=== PATIENT | male | born 1975 | race African-American/Black ===

== ENCOUNTER 2019-06-25 05:53 | Inpatient (IN) | payer OTHER ==
[~2019-06-25] VITALS: Ht 177.8 cm; Wt 68.0 kg
[2019-06-25] VITALS (20 sets, daily range): BP systolic 113–143; BP diastolic 66–92
[~2019-06-25 05:53] MED LIST: NKM
[2019-06-25] MEDS ORDERED: LORazepam 0.5mg tab ORAL PRN (06:15)
[2019-06-25] MEDS ORDERED: Chloraseptic Spray 20mL Bottle ORAL PRN (06:15)
[2019-06-25] MEDS ORDERED: HYDROcodone/Acetamin 10/325 tab ORAL PRN (06:15)
[2019-06-25] MEDS ORDERED: Dexamethasone 4mg/ml vial ONE (06:19)
[2019-06-25] MEDS ORDERED: Lidocaine 1% MPF 10mg/ml 5ml ONE ×2 (06:19→09:00)
[2019-06-25] MEDS ORDERED: Sodium Chloride 10ml vial INJ ONE (06:19)
[2019-06-25] MEDS ORDERED: LR 1000ml 1,000 ML IVLG SCH (06:23)
--- NOTE | 2019-06-25 06:27 | Immediate Post-Op Evaluation ---
Immediate Post-Op Evalulation Immediate Post-Op Evalulation Procedure: ALIF L5-S1 Date of Evaluation: Jun 25, 2019 Time of Evaluation: 09:57 IV Fluids: 900 LR Blood Products: 0 Estimated Blood Loss: 25 Urinary Output: 50 Blood Pressure Systolic: 113 Blood Pressure Diastolic: 67 Pulse Rate: 73 Respiratory Rate: 16 O2 Sat by Pulse Oximetry: 100 Temperature (Fahrenheit): 98.6 Pain Score (1-10): 3 Nausea: No Vomiting: No Complications 0 Patient Status: awake, reacts, patent, extubated, none Hydration Status: adequate Dru grams Ancef IV Given Within 1 Hr of Incision: Yes Time Given: 07:31 Vooldymyr Sinclair MD Jun 25, 2019 06:27
[2019-06-25] MEDS ORDERED: Midazolam 2mg/2ml Inj IVP PRN (06:30)
[2019-06-25] MEDS ORDERED: HYDROcodone/Acetamin 5/325 tab ORAL PRN (06:30)
[2019-06-25] MEDS ORDERED: Ketorolac 30mg Inj IV PRN ×2 (06:30)
[2019-06-25] MEDS ORDERED: DiphenhydrAMINE 50mg/ml Inj IVP PRN (06:30)
[2019-06-25] MEDS ORDERED: Atropine Sulfate 0.4mg/ml inj IVP PRN (06:30)
[2019-06-25] MEDS ORDERED: HYDROcodone/Acetamin 7.5/325 tab ORAL PRN (06:30)
[2019-06-25] MEDS ORDERED: Hydromorphone 0.5mg/0.5ml inj IVP PRN (06:30)
[2019-06-25] MEDS ORDERED: Acetaminophen (Non formulary) 100 ML IV ONE (06:30)
[2019-06-25] MEDS ORDERED: LORazepam Inj 2mg/ml 1ml IV PRN (06:30)
[2019-06-25] MEDS ORDERED: fentaNYL 100 mcg/2 mL IV PRN (06:30)
[2019-06-25] MEDS ORDERED: Labetalol 5mg/ml 20ml vial IV PRN (06:30)
[2019-06-25] MEDS ORDERED: Meperidine 50mg/ml Inj(FOR RIGORS ONLY) IVP PRN (06:30)
[2019-06-25] MEDS ORDERED: oxyCODONE HCL/Acetaminophen 5/325mg ORAL PRN (06:30)
[2019-06-25] MEDS ORDERED: Lidocaine 1% Plain 30 ml INJ ONE ×2 (06:33→06:35)
[2019-06-25] MEDS ORDERED: fentaNYL 100 mcg/2 mL IV ONE (06:33)
[2019-06-25] MEDS ORDERED: NORCO 10-325 T1 EACH ORAL (06:34)
[2019-06-25] MEDS ORDERED: CARISOPRODOL350 MG ORAL (06:34)
[2019-06-25] MEDS ORDERED: Heparin 5000 units/ml inj ONE (06:34)
[2019-06-25] MEDS ORDERED: Thrombin 5000 units TOPIC ONE (06:35)
[2019-06-25] MEDS ORDERED: Ropivacaine 5mg/ml Vial 30ml INJ ONE (06:35)
[2019-06-25] MEDS ORDERED: Gelfoam Size TOPIC ONE (06:35)
[2019-06-25] MEDS ORDERED: Bacitracin 50000 Units Vial ONE (06:35)
--- NOTE | 2019-06-25 06:58 | Anethesia Preoperative Eval ---
Anesthesia Pre-op PMH/ROS General Date of Evaluation: Jun 25, 2019 Time of Evaluation: 07:11 Anesthesiologist: Yahir ASA Score: ASA 2 Mallampati Score Class I : Soft palate, uvula, fauces, pillars visible Class II: Soft palate, uvula, fauces visible Class III: Soft palate, base of uvula visible Class IV: Only hard plate visible Mallampati Classification: Class II Surgeon: Oleksandr Diagnosis: Back Pain Surgical Procedure: ALIF L5-S1 Anesthesia History: none Family History: no anesthesia problems Allergies: Coded Allergies: SULFA (SULFONAMIDE ANTIBIOTICS) (Verified Allergy, Severe, RASH , 06/25/19) RISPERIDONE (Verified Adverse Reaction, Severe, AKINESIA, 06/24/19) Medications: see eMAR Patient NPO?: Yes NPO Date: Jun 24, 2019 NPO Time: 0000 Past Medical History Cardiovascular: Reports: arrhythmia - Pacemaker Gastrointestinal/Genitourinary: Reports: other - Crohns Neurologic/Psychiatric: Reports: depression/anxiety Anesthesia Pre-op Phys. Exam Physician Exam Last Vital Signs Date Time Temp Pulse Resp B/P (MAP) Pulse Ox O2 Delivery O2 Flow Rate FiO2 06/25/19 06:25 97.8 61 18 135/86 (102) 100 Constitutional: NAD Neurologic: CN 2-12 intact Cardiovascular: RRR Respiratory: CTA Gastrointestinal: S/NT/ND Airway Exam Mallampati Score: Class II MO: full ROM: full Teeth: missing, intact Anesthesia Pre-op A/P Risk Assessment & Plan Assessment: ASA 2 Plan: GA, SED, GlideScope Go Status Change Before Surgery: No Pre-Antibiotics Dru Grams Ancef IV Given Within 1 Hr of Incision: Yes Time Given: 07:31 Volodymyr Sinclair MD Jun 25, 2019 06:58
[2019-06-25] MEDS ORDERED: Propofol 1,000mg/ 100ml btl IV ONE (07:00)
[2019-06-25] MEDS ORDERED: NS 500ML ONE (07:00)
[2019-06-25] MEDS ORDERED: Sterile Water Irrig 1000ml IRRIG ONE (07:00)
[2019-06-25] MEDS ORDERED: Dexamethasone 20mg/5ml IVP ONE (07:00)
[2019-06-25] MEDS ORDERED: ceFAZolin sod 1 GM in NS 55 ML IVPB ONE (07:00)
[2019-06-25] MEDS ORDERED: NS Irrig 1000ml ONE (07:00)
[2019-06-25] MEDS ORDERED: LR 1000ml ONE (07:00)
--- NOTE | 2019-06-25 07:20 | Pre-Procedure Note/Attestation ---
Pre-Procedure Note/Attestation Complete Prior to Procedure Planned Procedure: not applicable Procedure Narrative: Ls-S1 ALIF anterior plate Indications for Procedure Pre-Operative Diagnosis: trauma discogenic baack pain radiculopathy neurological deficit Attestation I attest that I discussed the nature of the procedure; its benefits; risks and complications; and alternatives (and the risks and benefits of such alternatives ), prior to the procedure, with the patient (or the patient's legal lead generation representative). I attest that, if there was a reasonable possibility of needing a blood transfusion, the patient (or the patient's legal lead generation representative) was given the [place] Department [employer] standardized written summary, pursuant to the Garrett Wenden Blood Safety Act ([place] Health and Safety Code # 1645, as amended). I attest that I re-evaluated the patient just prior to the surgery and that there has been no change in the patient's H&P, except as documented below: Masoud Leggett MD Jun 25, 2019 07:20
--- NOTE | 2019-06-25 09:22 | Brief Operative Note ---
Immediate Post Operative Note Operative Note Pre-op Diagnosis: trauma discogenic baack pain radiculopathy neurological deficit Procedure: ALIF L5-S1 Interbody Device Biologic Anterior plate fixation - not integral with interbody device Post-op Diagnosis: same as pre-op Findings: consistent w/pre-op dx studies Surgeon: Oleksandr LOW Additional Surgeons: Karl LOW Anesthesiologist: Yahir LOW Anesthesia: general Specimen: yes Complications: none Condition: stable Fluids: anesthesia Estimated Blood Loss: minimal Drains: none Implant(s) used?: Yes Masoud Leggett MD Jun 25, 2019 09:21
--- NOTE | 2019-06-25 09:23 | NUR ---
CASE MANAGEMENT:REVIEW 43YR OLD MALE HERE FOR ELECTIVE SURGERY SI: BACK PAIN AND RADICULOPATHY 97.7 98 18 137/88 98% ON RA IS: TO SURGERY FOR: ANTERIOR LUMBAR INTERBODY FUSION POSTERIOR LATERAL FUSION : CURRENTLY IN SURGERY INTERQUAL CRITERIA MET Addendum: 06/25/19 at 0932 by ALIREZA OMSLEY LVN LVN ABOVE NOTE ENTERED IN ERROR....PLEASE DISREGARD
[2019-06-25] MEDS ORDERED: Naloxone 0.4mg/ml Inj IVP PRN (09:30)
--- NOTE | 2019-06-25 09:32 | NUR ---
CASE MANAGEMENT:REVIEW 43 YR OLD MALE HERE FOR ELECTIVE SURGERY SI:TRAUMA. DISCOGENIC BACK PAIN 97.8 61 18 135/86 100% ON RA IS: TO SURGERY: ALIF L5-S1 : CURRENTLY IN SURGERY INTERQUAL CITERIA MET
[2019-06-25] MEDS ORDERED: Rate Change PCA 1 Each MISC PRN (10:45)
[2019-06-25] MEDS ORDERED: PCA Education Pamphlet MISC ONE (10:45)
--- NOTE | 2019-06-25 11:02 | NUR ---
nurse notes received patient from PACU via bed, s/p ALIF L5-S1, dressing clean dry and intact, patient awake, alert, oriented x4, no sign of distress with on goingo2 AT 2lpm via NC,IVF patent and infusing well, meng cath to gravity, admission routine care rendered ,oriented to the unit , v/s taken and recorded, plan of care was discussed needs reinforcement, kept clean dry and intact lucia carrington
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
[2019-06-25] MEDS: PCA Morphine 1mg/ml 30 ML IV PRN (11:34)
[2019-06-25] MEDS: D5 1/2NS 1,000 ML IV SCH ×3 (11:35→22:42)
--- NOTE | 2019-06-25 11:59 | Diagnostic Imaging Report ---
Indication: Back pain. Fluoroscopic images from spinal surgery Technique: Fluoroscopic images from spinal surgery Operating Physician: Masoud Leggett MD Total fluoroscopy time: 11.3 seconds Total fluoroscopy dose: 3.9 mGy Total number of fluoroscopic images submitted for archival to PACS: 3 Note the radiologist was not present during image acquisition. Comparison: None Findings: Intraoperative fluoroscopic imaging from spinal surgery demonstrates surgical material projecting over the L5-S1 disc space. Subsequent images demonstrate anterior fusion at L5-S1 utilizing anterior plate affixed by screws as well as interbody disc spacer. Impression: Intraoperative fluoroscopic imaging from spinal surgery. Please see operative report.
--- NOTE | 2019-06-25 13:33 | NUR ---
NURSE NOTES: Spoke to regarding diet order. Per : spoke to and ok to order clear liquid diet with soda. Can advance as tolerated. Order noted and carried out.
[2019-06-25] MEDS: ceFAZolin sod 1 GM in D5W 55 ML IV SCH ×2 (14:28→20:59)
--- NOTE | 2019-06-25 16:30 | Operative Note - Dictated ---
DATE OF OPERATION: 06/25/2019 VASCULAR SURGEON: Matthew Barajas M.D. SPINE SURGEON: Masoud Leggett M.D. PREOPERATIVE DIAGNOSIS: Lumbar pain. POSTOPERATIVE DIAGNOSIS: Lumbar pain. PROCEDURE PERFORMED: Anterior retroperitoneal exposure of L5-S1 vertebral interspace, right retroperitoneal approach. INDICATIONS: The patient is a very pleasant gentleman who was seen in my office prior to surgery. no history of deep venous thrombosis or bleeding complications described. He was made aware of the risks of vascular surgery including vascular injury, deep venous thrombosis, and bleeding complications. DESCRIPTION OF FINDINGS: A low vertical midline incision was used. A right retroperitoneal approach was used. There was no peritoneal or ureteral violation. There was no vascular injury. Exposure of L5-S1 was obtained below the iliac bifurcation and confirmed using fluoroscopy. On completion, the peritoneum and ureter intact. The iliac vessels are intact. Blood loss was less than 100 mL and complications were none. DESCRIPTION OF PROCEDURE: The patient was taken to the operative room. General anesthesia was used. IV antibiotics were given. The patient's abdomen was prepped and draped. Appropriate time-out for procedures were taken. A low vertical midline incision was made infraumbilically, the anterior fascia was incised longitudinally midline. A plane was identified posterior to the left rectus abdominis developed posterolaterally towards the patient's right. The retroperitoneal space entered below the arcuate line. The peritoneum and ureter were mobilized towards the patient's left exposing the right common iliac artery and vein. Dissection was carried superiorly on right common iliac vessels. The anterior surface of L5-S1 palpated. The peritoneum and ureter towards the patient's left exposing the anterior surface of L5-S1. The medial border of the iliac vein was visualized and carefully swept laterally and Omni retractor was set in place. Fluoroscopy was then used to confirm the appropriate level. The middle sacral vessel was ligated using bipolar electrocautery and divided and this allowed to expose anterior surface of L5-S1. Instrumentation was then performed at L5-S1, dictated separately. On completion, retractors are removed. Peritoneum and ureter were intact. Iliac vessels are intact. Anterior fascia was closed using #1 PDS in a running fashion and the skin and subcutaneous tissue were closed with 3-0 Vicryl and 4-0 Monocryl in a running subcuticular closure technique. Estimated blood loss was less than 100 mL and complications were none. Matthew Barajas M.D. DR: JAKUB JOB#: [id number] CC:
[2019-06-25] MEDS: PCA shift volume MISC SCH (19:25)
--- NOTE | 2019-06-25 19:27 | NUR ---
HAND-OFF: Report given to Ms Nidia DAVILA aacordingly lucia carrington.
--- NOTE | 2019-06-25 20:15 | NUR ---
NURSES NOTE: Received pt in bed, awake, A/OX4, able to communicate needs. No outward s/s of distress noted. Breathing pattern is even and unlabored on 2l/min nasal canula. BACK JOINER pump running according to eMAR. Pt states he only uses it hourly, RN encouraged pt to use it more often due to pt stating he was currently in pain. Surgical site, medial abdomen is clean, dry, intact. L hand IV is patent, infusing well. All due medications will be given. Bed at lowest level, call light within reach. Pt will continue to be monitored.
[2019-06-26] VITALS (8 sets, daily range): BP systolic 123–136; BP diastolic 67–87
--- NOTE | 2019-06-26 04:16 | NUR ---
NURSES NOTE: Pt stable through out NOC shift thus far. States Morphine ELEVATOR ADJUSTER pump is efficient in handling pain. No outward s/s of distress noted.
[2019-06-26] MEDS: D5 1/2NS 1,000 ML IV SCH ×2 (05:22→09:26)
[2019-06-26] MEDS: ceFAZolin sod 1 GM in D5W 55 ML IV SCH (06:02)
[2019-06-26] MEDS: PCA shift volume MISC SCH ×2 (07:00→19:12)
--- NOTE | 2019-06-26 07:40 | NUR ---
NURSE NOTES: Report received from Velma DAVILA, rounds made. Patient sleeping in left lateral/semi-fowlers position in bed. Awakens easily. Patient denies SOB on O2 2LNC, no NV, appetite poor. Abdomen surgical site, intact, small area bloody stained. Demonstrated/instructed on IS with pillow to abdomen for surgical site splinting. IV (D5 1/2 NS) infusing at 150 ml/hr with BLOCKER POLISHING Morphine. Pain 6/10 to surgical site, refused ice pack. Bilateral SCDs on. Neuro checks done, no NT, skin warm, pulses palpable, wiggles. Call light in reach, bed in lowest position, will continue to monitor.
--- NOTE | 2019-06-26 07:51 | NUR ---
HAND OFF: Report given to GIOVANNI Beebe. Patient in stable condition.
--- NOTE | 2019-06-26 09:24 | 48 Hour Post Anesthesia Eval ---
Post Anesthesia Evaluation Procedure: ALIF L5-S1 Date of Evaluation: Jun 26, 2019 Time of Evaluation: 09:29 Blood Pressure Systolic: 125 0: 72 Pulse Rate: 66 Respiratory Rate: 17 Temperature (Fahrenheit): 97.9 O2 Sat by Pulse Oximetry: 99 Airway: patent Nausea: No Vomiting: No Pain Intensity: 2 Hydration Status: adequate Cardiopulmonary Status: Stable Mental Status/LOC: patient returned to baseline Follow-up Care/Observations: 0 Post-Anesthesia Complications: 0 Follow-up care needed: N/A Volodymyr Sinclair MD Jun 26, 2019 09:24
--- NOTE | 2019-06-26 10:36 | Cardiology Progress Note ---
Assessment/Plan Assessment/Plan [id number] dicateted Objective Last 24 Hour Vital Signs Date Time Temp Pulse Resp B/P (MAP) Pulse Ox O2 Delivery O2 Flow Rate FiO2 06/26/19 09:24 66 17 99 06/26/19 08:39 98 Room Air 21 06/26/19 08:10 97.9 66 17 125/72 (89) 99 06/26/19 08:00 66 17 99 06/26/19 04:00 98.4 64 17 134/80 (98) 99 06/26/19 04:00 62 17 99 06/26/19 00:00 98.3 79 18 133/87 (102) 99 06/26/19 00:00 70 18 99 06/25/19 21:00 Nasal Cannula 2.0 06/25/19 20:07 100 Nasal Cannula 2.0 28 06/25/19 20:00 79 18 100 06/25/19 20:00 99.2 79 17 134/77 (96) 98 06/25/19 16:15 98.1 69 16 139/91 (107) 98 06/25/19 16:00 64 18 98 06/25/19 15:00 71 18 97 06/25/19 14:00 71 18 97 06/25/19 13:00 69 17 97 06/25/19 12:30 64 18 135/90 (105) 98 06/25/19 12:30 64 18 98 06/25/19 12:00 68 18 98 06/25/19 11:50 97.6 69 18 143/90 (107) 98 06/25/19 11:50 69 18 98 06/25/19 11:40 100 Nasal Cannula 2.0 28 06/25/19 11:35 71 16 98 06/25/19 11:15 97.8 71 16 141/91 (108) 98 06/25/19 11:00 97.8 70 130/92 (105) 17 06/25/19 10:45 97.9 06/25/19 10:36 97.9 71 19 138/85 100 Nasal Cannula 3 Intake and Output 06/25/19 06/26/19 19:00 07:00 Intake Total 2513 ml 2790 ml Output Total 1375 ml 2250 ml Balance 1138 ml 540 ml Intake Oral 500 ml 1180 ml IV Total 2013 ml 1610 ml Output Urine Total 1350 ml 2250 ml Estimated Blood Loss 25 ml Yazan Fischer MD Jun 26, 2019 10:36
[2019-06-26] MEDS ORDERED: D5 1/2NS 1000ml IV ONE (10:42)
[2019-06-26] MEDS: PCA Morphine 1mg/ml 30 ML IV PRN (13:16)
[2019-06-26] MEDS ORDERED: LORazepam 0.5mg tab ORAL PRN (14:30)
--- NOTE | 2019-06-26 14:30 | NUR ---
NURSE NOTES: Instructed patient on orders to ambulate. Advised that we can ambulate in room first then try the hallway, patient verbalized understanding, will check back with patient on when ready to get up.
--- NOTE | 2019-06-26 14:46 | NUR ---
PT Note PT emeka completed, treatment initiated. Patient was instructed on proper log rolling and proper body mechanics. Patient needs continued training on these to improve his safety in mobility and gait. Addendum: 06/26/19 at 1446 by CHIRAG OLIVARES PT Amended: Links added.
--- NOTE | 2019-06-26 15:30 | NUR ---
NURSE NOTES: DAIRY NUTRITION SPECIALIST Morphine syringe changed at 1316, verified with 2 RNs, setting remains the same. Patient alert, oriented x4, calm. Vitals stable. O2 sats 97-99 % 2LNC, CO2 35-38. Pain 5/10 to surgical site with movement. IVF (D5 1/2 at 150 ml/hr) discontinued at this time, changed to 0.9 NS at 20 ml/hr as maintenance to DAIRY NUTRITION SPECIALIST Morphine. Will continue to monitor.
--- NOTE | 2019-06-26 16:00 | NUR ---
NURSE NOTES: Suggested to patient to get up and ambulate in room with RN, patient said later he will. Will offer assistance again. Addendum: 06/26/19 at 1904 by Concepción Stahl RN Reinforced the importance of changing position and mobility post op to prevent respiratory infections and skin breakdown. Instructed patient to continue to do IS 10x an hour, verbalized understanding.
--- NOTE | 2019-06-26 16:41 | NUR ---
PT Note Attempted to see patient for treatment but patient wants to be seen at a later time. Patient was encouraged to ambulate with nursing assistance later.
--- NOTE | 2019-06-26 18:20 | NUR ---
NURSE NOTES: Suggested to patient to get up for five minutes to ambulate around room then back to bed, patient refused said he will get up later, will endorse to next shift.
--- NOTE | 2019-06-26 19:05 | NUR ---
HAND-OFF: Report given to Velma DAVILA,rounds made. Endorsed patient refusing to ambulate and to encourage activity. Addendum: 06/26/19 at 1942 by Concepción Stahl RN Endorsed new order for Flomax at HS and FC to be discontinued tomorrow morning (06/27/2019 at 0600)
--- NOTE | 2019-06-26 20:11 | NUR ---
NURSES NOTE: Received report from GIOVANNI Beebe. Met pt in bed, A/OX4, able to communicate needs. No outward s/s of distress noted. Pt now on RA with breathing pattern even and unlabored. WIRE WINDING MACHINE OPERATOR pump, morphine running according to eMAR, pt states effective. Order to be d/c within 24 hrs or after last syringe complete- which ever comes first. Pt states he will ambulate with RN. Made aware dr would like him to ambulate during NOC shift. Dressing, medial abdomen, small blood stain; however no orders to change PRN. Pt will continue to be monitored. Bed at lowest level, call light within reach.
--- NOTE | 2019-06-26 20:15 | Consultation ---
DATE OF CONSULTATION: 06/26/2019 INTERNAL MEDICINE CONSULTATION CONSULTING PHYSICIAN: Yazan Fischer M.D. REFERRING PHYSICIAN: Masoud Leggett M.D. REASON FOR REFERRAL: Postoperative medial care. HISTORY OF PRESENT ILLNESS: This is a 43-year-old gentleman with history of multiple issues as noted. The patient was admitted and underwent lumbar spine surgery with Dr. Leggett on 06/25/2019 for trauma, discogenic back pain, radiculopathy, and neurological deficit, and is being seen postoperatively. He has already walked. He has had no bowel movement, but is passing gas. He denies any chest pain, pressure, tightness, or heaviness. No shortness of breath. No dizziness on standing. No heart pounding or palpitations. 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 He has a history of depression. Denies any diabetes, high blood pressure, or high cholesterol. No heart attack, cancer, stroke, hepatitis, tuberculosis, asthma, or emphysema. No ulcers. No kidney problems, liver problems, or thyroid problems. MAJOR PRIOR SURGERIES: Pacemaker implantation. ALLERGIES: He is allergic to Haldol that caused him to have stiffness. The chart indicates he is also allergic to risperidone and sulfa. SOCIAL HISTORY: Occasional tobacco. Quit alcohol in 2018 and drug in 2018. Used to use cocaine previously. He is legally . There are no kids. REVIEW OF SYSTEMS: GASTROINTESTINAL: Negative. GENITOURINARY: Negative. PULMONARY: Negative. CONSTITUTIONAL: Negative. NEUROLOGIC: Negative. CARDIAC: Negative. PHYSICAL EXAMINATION: GENERAL: Shows to be a middle-aged gentleman, in no respiratory distress. NECK: Supple. No jugular venous distention. LUNGS: Clear to auscultation and percussion. CARDIAC: S1 is normal. S2 is normal. Pacemaker in the left upper chest wall was intact. ABDOMEN: Soft. There is a vertical dressing in the lower abdominal midline area. The dressing is clean. There is minimal dried blood underneath the dressing. EXTREMITIES: There is no edema. He has pneumatic compression stockings in place. ASSESSMENT: 1. Lumbar spine injury, now status post surgery for radiculopathy. 2. Pacemaker history. PLAN: This patient was seen in cardiac consultation and medical consultation. He is doing well. His vital signs appeared to be quite stable and his temperature is afebrile. He is already on warfarin and has not had any bowel movement, but he has had passed flatus. He is walking in the halls, and once he is able to tolerate a meal and has a bowel movement, he will be discharged home. DVT prophylaxis with use of pneumatic compression stockings and early ambulation and also was recommended that the patient is not on any chronic medications that require adjustment. Dr. Reyes has seen the patient for pain management and the patient is doing relatively well. Yazan Fischer M.D. DR: DAVID JOB#: [id number] CC:
[2019-06-26] MEDS ORDERED: Tamsulosin 0.4mg cap ORAL ONE (21:00)
--- NOTE | 2019-06-26 22:45 | Progress Note ---
DATE: 06/26/2019 ACUTE PAIN MANAGEMENT PHYSICIAN PROGRESS NOTE MEDICATIONS: Medication administration record reviewed. Medications include Tylenol, Mylanta, Soma, Benadryl, Pepcid, [place], Ativan, morphine FACULTY SUPPORT COORDINATOR, intramuscular morphine, Narcan, NicoDerm patch, Zofran, Chloraseptic spray, and Phenergan. LABORATORY STUDIES: No interval laboratory studies. VITAL SIGNS: Afebrile, pulse 63, respirations 20, blood pressure 123/71, and oxygen saturation 99% on room air. I spent over 60 minutes in consultation today. I discussed the case with the surgeon, Dr. Leggett, along with the nurse, GIOVANNI Hunt. The patient has been recovering quickly from his ALIF spinal surgical procedure yesterday. He is already passing flatus. He has been advancing his diet without any nausea problems. The patient continues to respond well to the morphine FACULTY SUPPORT COORDINATOR, which I will continue for another 24 hours. Afterwards, I will transition on to the oral [place] pills along with intramuscular morphine. The patient already has a supply of [place] for home usage. The patient denies any shortness breath or chest pain. Nicotine patch is working well to help prevent nicotine-withdrawal agitation. I will continue p.r.n. Ativan for anxiety or insomnia episodes, which thankfully have not occurred during this hospitalization. The patient is agreeable with the recovery plan. We will continue to advance him with physical therapy as tolerated. He walked very well without any assist device such as a front-wheeled walker with the physical therapist earlier today. He has been cleared to ambulate ad-ángela. Increased ambulation will continue to help with DVT prophylaxis along with anglican of bowel function. We will await a bowel movement to demonstrate improvement in recovery in his bowel function after the ALIF procedure. He will continue with his incentive spirometer usage with his tobacco usage. I once again counseled the patient to discontinue smoking. The patient already has supply of [place] for home usage. He has minimal support outside the hospital, so we will be certain that the patient is able to independently function at home and be able to take care of his own activities of daily living by himself prior to hospital discharge. The patient does have a cardiac pacemaker and Dr. Fischer evaluated the patient earlier this morning. Bhupendra Reyes M.D. DR: Roya JOB#: [id number] CC:
[2019-06-27 04:00] VITALS: BP 140/89
[2019-06-27 06:00] VITALS: BP 140/89
[2019-06-27] MEDS: PCA shift volume MISC SCH (07:00)
--- NOTE | 2019-06-27 07:22 | NUR ---
NURSE NOTES: Report received from Velma DAVILA, rounds made. Patient sleeping in left lateral position in bed, awakens easily. Denies pain at this time. MANDARIN TUTOR (Morphine) in place with NS at 20 ml/hr. Urinal at bedside, awaiting on first void post FC removal. No distress on RA. No NV. Abdominal dressing, remains unchanged, small area stained, upper part of dressing. Nicotine patch to NANCY. Bilateral SCDs off. Neuros intact, skin warm, wiggles, pulses palpable, no NT. Call light in reach, bed in lowest position, will continue to monitor.
--- NOTE | 2019-06-27 07:54 | NUR ---
HAND OFF: Report given to lucia Beebe.
[2019-06-27 08:00] VITALS: BP 148/94
[2019-06-27] MEDS ORDERED: Docusate 100mg cap ORAL SCH (09:00)
--- NOTE | 2019-06-27 09:30 | Progress Note ---
DATE: 06/27/2019 ACUTE PAIN MANAGEMENT PHYSICIAN PROGRESS NOTE MEDICATIONS: Medication administration record reviewed. Medications include Tylenol, Mylanta, Soma, Benadryl, Pepcid, [place], Ativan, morphine SR. MERCHANDISE PLANNER, intramuscular morphine, Narcan, nicotine patch, Zofran, and Chloraseptic spray. LABORATORY STUDIES: No interval laboratory studies. OBJECTIVE: Afebrile, pulse 64, respirations 18, blood pressure 140/89, oxygen saturation 99% on room air. I spent over 60 minutes in consultation today. I saw the patient at the bedside with the nurse RN, Concepción. I will also spoke with the overnight nurse, Velma, who ambulated around the hallways with the patient last night. This morning, the patient is alert and oriented x3. He continues to use the morphine SR. MERCHANDISE PLANNER quite sparingly. He is complaining of significant abdominal incisional pain. I explained that this is completely normal, especially in light of stoic behavior using the pain medication very sparingly. At this point, I would Hep-Lock his IV fluids and discontinue the SR. MERCHANDISE PLANNER in order to encourage movement in and out of bed. The Vazquez catheter was removed this morning, and the patient is able to void urine well. I did encourage the patient not use the urinal at the bedside, but instead to ambulate to the restroom for extra ambulation exercising. The patient agrees to comply. The patient has been compliant using his incentive spirometer. He is afebrile. The patient continued use of the nicotine patch. We had a lengthy discussion about nicotine usage in smoking cessation, which Dr. Leggett and I strongly advise, to help optimize his surgical fusion repair. The patient understands and will try to comply. The patient has a good supply of [place] already at home. He is tolerating a regular diet without any nausea symptoms. He also denies shortness of breath or chest pain. There have been no cardiac arrhythmia issues with his pacemaker history. The patient will continue advancing his ambulation as we wait for evidence of confucianism of bowel function with a positive bowel movement. Bhupendra Reyes M.D. : KATERINE JOB#: [id number] CC:
[2019-06-27] MEDS: Morphine Sulfate 2mg/ml Inj(IV/IM USE ONLY) IM PRN ×3 (09:54→23:13)
[2019-06-27 12:00] VITALS: BP 140/83
--- NOTE | 2019-06-27 14:45 | NUR ---
NURSE NOTES: Patient up ambulating in halls x 10 mins, gait steady. Will continue to monitor.
--- NOTE | 2019-06-27 15:07 | NUR ---
PT Note Attempted to see patient multiple times but patient always states, "I'll do it later." Patient was educated on the importance of ambulation but he still refused.
[2019-06-27 16:00] VITALS: BP 149/91
--- NOTE | 2019-06-27 16:06 | Cardiology Progress Note ---
Assessment/Plan Assessment/Plan 1. Lumbar spine injury, now status post surgery for radiculopathy. 2. Pacemaker history. no bm but has had flatus pain control continue to dvt ppx ambualte if has bm will dc home Subjective Cardiovascular: Denies: chest pain, lightheadedness, palpitations Respiratory: Denies: shortness of breath Gastrointestinal/Abdominal: Reports: other - lower abd dressign is clean an dry ; Denies: abdomen distended Genitourinary: Denies: burning Objective Last 24 Hour Vital Signs Date Time Temp Pulse Resp B/P (MAP) Pulse Ox O2 Delivery O2 Flow Rate FiO2 06/27/19 12:00 98.5 63 16 140/83 (102) 99 06/27/19 09:29 100 Room Air 21 06/27/19 08:00 98.7 62 16 148/94 (112) 100 06/27/19 08:00 62 16 100 06/27/19 06:00 64 19 99 06/27/19 04:00 97.9 64 18 140/89 (106) 99 06/27/19 04:00 64 19 99 06/26/19 21:00 Room Air 06/26/19 20:54 98 Room Air 21 06/26/19 20:00 60 19 99 06/26/19 20:00 98.9 60 19 133/67 (89) 99 General Appearance: no apparent distress Neck: supple Cardiovascular: normal rate Respiratory/Chest: lungs clear Abdomen: non tender, soft, other - lower abd surgical dressign clean an dry Extremities: no swelling Intake and Output 06/26/19 06/27/19 19:00 07:00 Intake Total 677 ml 1200 ml Output Total 1850 ml 525 ml Balance -1173 ml 675 ml Intake Oral 677 ml 1200 ml Output Urine Total 1850 ml 525 ml Microbiology Date/Time Source Procedure Growth Status 06/25/19 06:30 Nasal Nares MRSA Culture - Final NO METHICILLIN RESISTANT STAPH AUREUS... Complete Yazan Fischer MD Jun 27, 2019 16:06
[2019-06-27] MEDS ORDERED: Magnesium Citrate Liq Btl ORAL SCH (16:30)
--- NOTE | 2019-06-27 17:45 | NUR ---
NURSE NOTES: Updated Dr. Leggett on patient's current status, notified of no BM, new colace orders, activity, stained dressing. Orders to leave dressing in place, do not change, DC colace, ordered Mag Citrate 1/3 bottle now and 1/3 bottle in 6 hours. Patient updated on new orders and plan of care, verbalized understanding.
--- NOTE | 2019-06-27 19:25 | NUR ---
HAND-OFF: Report given to Velma DAVILA, rounds made. Endorsed patient to receive Mag Citrate (100 ml) at 2315.
--- NOTE | 2019-06-27 19:46 | NUR ---
NURSES NOTE: Received report from GIOVANNI Beebe. Met pt in bed, sleeping, awakens to name. A/OX4, able to express needs. No outward s/s of distress noted. Breathing pattern is even and unlabored on RA. JOY LOADING MACHINE OPERATOR pump discontinued. Dressing, medial abdomen, remains stained with a small amount of blood. No orders to change dressing. is aware. Pt states he would like to ambulate to encourage BM. RN will walk with pt after med rounds. All due medications will be given. Bed at lowest level, call light within reach. Pt will continue to be monitored.
[2019-06-27 20:00] VITALS: BP 123/76
[2019-06-28] VITALS: BP 138/81
[2019-06-28 04:00] VITALS: BP 134/83
--- NOTE | 2019-06-28 07:30 | Progress Note ---
DATE: 06/28/2019 ACUTE PAIN MANAGEMENT PHYSICIAN PROGRESS NOTE MEDICATIONS: Medication administration record reviewed. Medications include Tylenol, Mylanta, Benadryl, Pepcid, Lynd, morphine, Narcan, nicotine patch, Zofran, and Chloraseptic spray. LABORATORY STUDIES: No interval laboratory studies. OBJECTIVE: VITAL SIGNS: Within normal limits. Afebrile, pulse 63, respirations 17, blood pressure 138/81, oxygen saturation 100% on room air. I spent over 60 minutes in consultation today. I saw the patient at the bedside with the nurse RN, Velma. I discussed the case with the surgeon, Dr. Leggett and Orthopedics charge nurse RN, . The patient continues to advance his ambulation well. The abdominal incisional pain continues to improve. He has been managing his pain quite well using the p.r.n. doses of morphine primarily. Lynd remains available, which the patient also will use when he returns to home. Dr. Leggett directed the nurses to dose the patient with magnesium citrate 100 mL to help with the patient to have a bowel movement. The patient had a dose at 5 p.m. yesterday evening and second dose at 11 p.m. last night. At this time, the patient still has not yet had a bowel movement and we will await Dr. Leggett to direct for further laxative orders. The patient does not feel bloated at this time, but does feel comfortable to managing his activities of daily living at home by himself. However, he is cleared for discharge after his bowel movement here in the hospital. The wound dressing is clean and dry. The patient is compliant using his incentive spirometer. There have been no anxiety episodes and the patient is very cooperative as well as appreciative. Bhupendra Reyes M.D. DR: KATERINE JOB#: [id number] CC:
--- NOTE | 2019-06-28 07:45 | NUR ---
NURSE NOTES: Received report from Velma DAVILA. Patient is awake and oriented, no acute distress noted, reporting no pain at this time. patient had normal BM this morning, having breakfast and tolerating well. Right hand IV intact, locked. Surgical site dressing has small stain. Patient updated on plan of care for the day. Side rails upx2, bed low and locked, call light within reach.
--- NOTE | 2019-06-28 07:58 | NUR ---
NURSES NOTE: Pt seen by Dr Reyes this morning. NNO given. No BM as of yet after Magnesium citrate administration. Last dose, 100ml given 2315 last night although not able to document eMAR.
[2019-06-28 08:00] VITALS: BP 137/84
--- NOTE | 2019-06-28 08:00 | NUR ---
HAND OFF: Report given to GIOVANNI Bocanegra. Pt in stable condition.
--- NOTE | 2019-06-28 11:57 | NUR ---
NURSE NOTES: Called the office of Dr. Leggett and received discharge order from , home medications reviewed with and MD ordered ok to continue. All orders entered, will carry out.
[2019-06-28 12:00] VITALS: BP 133/89
--- NOTE | 2019-06-28 12:00 | Operative Note - Dictated ---
DATE OF OPERATION: 06/25/2019 Dr. Leggett assist Vascular Surgery. PRIMARY SURGEON: Masoud Leggett, Ph.D.; M.D. SECOND SURGEON: Matthew Barajas M.D. Vascular Surgery. ANESTHESIA: Volodymyr Sinclair M.D. general with intubation. ADMITTING/ PREOPERATIVE DIAGNOSES: L5-S1 diskogenic back pain, radiculopathy, neurologic deficit, lower extremity. POSTOPERATIVE DIAGNOSES: L5-S1 diskogenic back pain, radiculopathy, neurologic deficit, lower extremity. OPERATIVE PROCEDURE: 1. Anterior interbody reconstruction and fusion, L5-S1. 2. Placement of osteopromotive material, L5-S1. 3. Placement of titanium porous ingrowth, lordotic interbody device L5-S1. 4. Intraoperative fluoroscopy interpreted by surgeon. 5. High-powered magnification dissection. 6. SSEP monitoring. ESTIMATED BLOOD LOSS: Less than 50 mL. COMPLICATIONS: None. FLUIDS: Please see anesthesia record. POSTOPERATIVE CONDITION: Good/stable. DESCRIPTION OF PROCEDURE: The patient was brought to the operating room and in the supine position, general anesthesia with intubation was induced. IV antibiotics, IV Decadron were administered 30 minutes prior to incision time. Anterior abdomen was sterilely prepped and draped free in usual sterile fashion. Please see report Dr. Barajas Vascular Surgery, for approach and closure. L5-S1 interval was identified with direct visualization. Spinal needle was placed into the disk space midline and a cross-table and AP image was obtained under sterile conditions, interpreted by surgeons demonstrating the correct level for surgery as well as midline for placement. Level marked. Retractors placed. Needle removed. Annulotomy followed with diskectomy to but not through the posterior longitudinal ligament. Intermittent rents were identified/visualized. No cerebrospinal fluid leakage. No degradation at any time. SSEP monitoring. Posterior longitudinal ligament rents noted during diskography with dye flow through those rents. End-plates denuded to bleeding bone with maintenance of the integrity of the subchondral plates. Trial utilization utilized for determination of the correct implants size and height with depth and lordosis. Implant height utilized for decompression of the foramina right/left. Osteopromotive material with local autograft placed inside of the titanium porous ingrowth graft. Graft tamped into position under high-power magnification/direct observation in conjunction with fluoroscopic guidance. Interference fit excellent. Height excellent. SSEP monitoring stable. Anterior internal plate fixation without the plate fixation being integral to the interbody graft was undertaken in a compressive fashion with 30 mm titanium screws. Locked into position. Fluoroscopic guidance demonstrated excellent alignment and convergence. The patient is stable. AP and lateral fluoroscopic images obtained recorded. Wound irrigated with antibiotic-containing saline. Please see closure, Dr. Barajas. The patient was awakened and extubated in the operating room and transported to postop recovery in good stable condition. Masoud Leggett M.D. DR: Claudio JOB#: [id number] CC:
--- NOTE | 2019-06-28 12:32 | NUR ---
NURSE NOTES: Patient discharged without distress at 1220. Patient provided with discharge instructions, reviewed discharge instructions/handouts with patient and patient verbalized understanding of provided education. IV removed intact. Patient escorted to private vehicle by nurse discharge planner.
--- NOTE | 2019-06-28 14:37 | NUR ---
CASE MANAGEMENT:REVIEW 06/26/2019 SI:POD# 1 TRAUMA. DISCOGENIC BACK PAIN 97.9 66 17 125/72 99% ON RA IS: PEPCID PO BID NICODERM TD Q24HR COLACE PO BID \: 3E MED SURG CASE MANAGEMENT:REVIEW 06/27/2019 SI:POD# 2 TRAUMA. DISCOGENIC BACK PAIN 98.7 62 16 148/94 100% ON RA IS: PEPCID PO BID NICODERM TD Q24HR COLACE PO BID \: 3E MED SURG
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
== END 2019-06-28 12:20 | disposition home or self-care (01) | DRG 460 ==
LOC: SDSOVERFLO 05:53 → EEVIPCON 07:00 → 3E 10:45
DX: M54.17 Radiculopathy, lumbosacral region (principal); F17.200 Nicotine dependence, unspecified, uncomplicated; Z95.0 Presence of cardiac pacemaker; G89.18 Other acute postprocedural pain; V89.2XXS Person injured in unspecified motor-vehicle accident, traffic, sequela; F32.9 Major depressive disorder, single episode, unspecified
CPT/HCPCS: 36415; 72020; 76000; 86850; 86900; 86901; 87081; 94003; 94150; J2405

== ENCOUNTER 2019-09-22 05:13 | Observation (INO) | payer OTHER ==
[~2019-09-22] VITALS: Ht 177.8 cm; Wt 67.6 kg
[2019-09-22] VITALS (14 sets, daily range): BP systolic 115–153; BP diastolic 67–101
[~2019-09-22 05:13] MED LIST changes: +CARISOPRODOL350 MG ORAL; +NORCO 10-325 T1 EACH ORAL
[2019-09-22] MEDS ORDERED: Chloraseptic Spray 20mL Bottle ORAL PRN (06:15)
[2019-09-22] MEDS ORDERED: HYDROcodone/Acetamin 10/325 tab ORAL PRN (06:15)
[2019-09-22] MEDS ORDERED: DiphenhydrAMINE 25mg Tab ORAL PRN (06:15)
[2019-09-22] MEDS ORDERED: Dexamethasone 20mg/5ml ONE (06:28)
[2019-09-22] MEDS ORDERED: LR 1000ml 1,000 ML IVLG SCH (06:41)
--- NOTE | 2019-09-22 06:41 | Anethesia Preoperative Eval ---
Anesthesia Pre-op PMH/ROS General Date of Evaluation: Sep 22, 2019 Time of Evaluation: 06:49 Anesthesiologist: Yahir ASA Score: ASA 2 Mallampati Score Class I : Soft palate, uvula, fauces, pillars visible Class II: Soft palate, uvula, fauces visible Class III: Soft palate, base of uvula visible Class IV: Only hard plate visible Mallampati Classification: Class II Surgeon: Oleksandr Diagnosis: Neck Pain Surgical Procedure: ACDF C5-6,C6-7 Anesthesia History: none Family History: no anesthesia problems Allergies: Coded Allergies: SULFA (SULFONAMIDE ANTIBIOTICS) (Verified Allergy, Severe, RASH , 09/22/19) RISPERIDONE (Verified Adverse Reaction, Severe, AKINESIA, 09/22/19) Medications: see eMAR Patient NPO?: Yes NPO Date: Sep 21, 2019 NPO Time: 1900 Past Medical History Cardiovascular: Reports: arrhythmia - Pacemaker Gastrointestinal/Genitourinary: Reports: other - Crohns PSxH Narrative: S/P Lumbar SX Anesthesia Pre-op Phys. Exam Physician Exam Last Vital Signs Date Time Temp Pulse Resp B/P (MAP) Pulse Ox O2 Delivery O2 Flow Rate FiO2 09/22/19 06:01 Room Air 09/22/19 05:50 97.6 61 20 138/93 (108) 100 Constitutional: NAD Neurologic: CN 2-12 intact Cardiovascular: RRR Respiratory: CTA Gastrointestinal: S/NT/ND Airway Exam Mallampati Score: Class II MO: limited ROM: limited Teeth: intact Anesthesia Pre-op A/P Risk Assessment & Plan Assessment: ASA 2 Plan: GA, SED, GlideScope Status Change Before Surgery: No Pre-Antibiotics Dru Grams Ancef IV Given Within 1 Hr of Incision: Yes Time Given: 07:21 Vloodymyr Sinclair MD Sep 22, 2019 06:41
[2019-09-22] MEDS ORDERED: Bacitracin 50000 Units Vial ONE (06:45)
[2019-09-22] MEDS ORDERED: Thrombin 5000 units TOPIC ONE (06:45)
[2019-09-22] MEDS ORDERED: HYDROcodone/Acetamin 5/325 tab ORAL PRN (06:45)
[2019-09-22] MEDS ORDERED: Acetaminophen (Non formulary) 100 ML IV ONE (06:45)
[2019-09-22] MEDS ORDERED: Ketorolac 30mg Inj IV PRN ×2 (06:45)
[2019-09-22] MEDS ORDERED: LORazepam Inj 2mg/ml 1ml IV PRN (06:45)
[2019-09-22] MEDS ORDERED: DiphenhydrAMINE 50mg/ml Inj IVP PRN (06:45)
[2019-09-22] MEDS ORDERED: Midazolam 2mg/2ml Inj IVP PRN (06:45)
[2019-09-22] MEDS ORDERED: Hydromorphone 0.5mg/0.5ml inj IVP PRN (06:45)
[2019-09-22] MEDS ORDERED: Atropine Sulfate 0.4mg/ml inj IVP PRN (06:45)
[2019-09-22] MEDS ORDERED: oxyCODONE HCL/Acetaminophen 5/325mg ORAL PRN (06:45)
[2019-09-22] MEDS ORDERED: HYDROcodone/Acetamin 7.5/325 tab ORAL PRN (06:45)
[2019-09-22] MEDS ORDERED: fentaNYL 100 mcg/2 mL IV PRN (06:45)
[2019-09-22] MEDS ORDERED: Dexamethasone 20mg/5ml IVP ONE (06:45)
[2019-09-22] MEDS ORDERED: Metoclopramide 10mg/2ml Inj IVP PRN (06:45)
[2019-09-22] MEDS ORDERED: Gelfoam Size TOPIC ONE (06:45)
[2019-09-22] MEDS ORDERED: Meperidine 25mg/0.5ml Inj (FOR RIGORS ONLY) IV PRN (06:45)
[2019-09-22] MEDS ORDERED: Rocuronium Bromide 50mg/5ml Inj IV ONE (06:46)
[2019-09-22] MEDS ORDERED: Lidocaine 1% Plain 30 ml INJ ONE ×2 (06:52→08:53)
[2019-09-22] MEDS ORDERED: Dexamethasone 4mg/ml vial ONE (06:52)
[2019-09-22] MEDS ORDERED: Lidocaine 1% MPF 10mg/ml 5ml ONE (06:52)
[2019-09-22] MEDS ORDERED: Sodium Chloride 10ml vial INJ ONE (06:52)
[2019-09-22] MEDS ORDERED: ceFAZolin sod 1 GM in NS 55 ML IVPB ONE (07:00)
[2019-09-22] MEDS ORDERED: Dexamethasone 4mg/ml vial IVP ONE (07:00)
[2019-09-22] MEDS ORDERED: LR 1000ml ONE (07:00)
[2019-09-22] MEDS ORDERED: Sterile Water Irrig 1000ml IRRIG ONE (07:00)
[2019-09-22] MEDS ORDERED: Propofol 1,000mg/ 100ml btl IV ONE ×2 (07:00)
[2019-09-22] MEDS ORDERED: NS Irrig 1000ml ONE (07:00)
--- NOTE | 2019-09-22 07:12 | Pre-Procedure Note/Attestation ---
Pre-Procedure Note/Attestation Complete Prior to Procedure Planned Procedure: not applicable Procedure Narrative: ACDF C5-C6, C6-C7 anterior plate Indications for Procedure Pre-Operative Diagnosis: Cervical HNP radiculopathy, neurological deficit Attestation I attest that I discussed the nature of the procedure; its benefits; risks and complications; and alternatives (and the risks and benefits of such alternatives ), prior to the procedure, with the patient (or the patient's legal membership sales representative). I attest that, if there was a reasonable possibility of needing a blood transfusion, the patient (or the patient's legal membership sales representative) was given the [facility] standardized written summary, pursuant to the Garrett Gross Blood Safety Act ([place] Health and Safety Code # 1645, as amended). I attest that I re-evaluated the patient just prior to the surgery and that there has been no change in the patient's H&P, except as documented below: Masoud Leggett MD Sep 22, 2019 07:12
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
[2019-09-22] MEDS ORDERED: fentaNYL 100 mcg/2 mL IV ONE (08:12)
--- NOTE | 2019-09-22 09:01 | Immediate Post-Op Evaluation ---
Immediate Post-Op Evalulation Immediate Post-Op Evalulation Procedure: ACDF C5-6, C6-7 Date of Evaluation: Sep 22, 2019 Time of Evaluation: 10:25 IV Fluids: 1000 LR Blood Products: 0 Estimated Blood Loss: 500 Urinary Output: 0 Blood Pressure Systolic: 115 Blood Pressure Diastolic: 67 Pulse Rate: 72 Respiratory Rate: 16 O2 Sat by Pulse Oximetry: 100 Temperature (Fahrenheit): 97 Pain Score (1-10): 2 Nausea: No Vomiting: No Complications 0 Patient Status: awake, reacts, patent, extubated, none Hydration Status: adequate Dru Grams Ancef IV Given Within 1 Hr of Incision: Yes Time Given: 07:21 Volodymyr Sinclair MD Sep 22, 2019 09:01
--- NOTE | 2019-09-22 09:02 | Immediate Post-Op Evaluation ---
Immediate Post-Op Evalulation Immediate Post-Op Evalulation Procedure: ACDF C5-6, C6-7 Date of Evaluation: Sep 22, 2019 Blood Products: 0 Pain Score (1-10): 2 Nausea: No Vomiting: No Complications 0 Patient Status: awake, reacts, patent, extubated, none Hydration Status: adequate Dru Grams Ancef IV Given Within 1 Hr of Incision: Yes Time Given: 07:21 Volodymyr Sinclair MD Sep 22, 2019 09:02
[2019-09-22] MEDS ORDERED: Neostigmine 1mg/ml 10ml Inj ONE (09:18)
[2019-09-22] MEDS ORDERED: Glycopyrrolate 0.2mg/ml 1ml Vial ONE (09:18)
--- NOTE | 2019-09-22 09:46 | Brief Operative Note ---
Immediate Post Operative Note Operative Note Pre-op Diagnosis: Cervical HNP radiculopathy, neurological deficit Procedure: ACDF C5-C6 C6-C7 plate xray ssep Post-op Diagnosis: same as pre-op Findings: consistent w/pre-op dx studies Surgeon: Oleksandr LOW Brush Finisher: eB MARTINEZ Anesthesiologist: Yahir LOW Anesthesia: general Specimen: yes Complications: none Condition: stable Fluids: anesthesia Estimated Blood Loss: minimal Drains: none Implant(s) used?: Yes Masoud Leggett MD Sep 22, 2019 09:46
[2019-09-22] MEDS ORDERED: Naloxone 0.4mg/ml Inj IVP PRN (10:00)
--- NOTE | 2019-09-22 11:43 | Diagnostic Imaging Report ---
INDICATION: Pain, intraoperative TECHNIQUE: Intraoperative imaging Fluoroscopy time: 11.3 seconds Total dose: 0.57856 mGym2 Total number of images: 3 COMPARISON: None FINDINGS: Initial images document a surgical tool projected over the C5 vertebral body. Subsequent images demonstrate placement of anterior fusion hardware bridging C5, C6, and C7. IMPRESSION: Intraoperative imaging, as described
--- NOTE | 2019-09-22 11:43 | Diagnostic Imaging Report ---
INDICATION: Pain, intraoperative TECHNIQUE: Intraoperative imaging Fluoroscopy time: 11.3 seconds Total dose: 0.43154 mGym2 Total number of images: 3 COMPARISON: None FINDINGS: Initial images document a surgical tool projected over the C5 vertebral body. Subsequent images demonstrate placement of anterior fusion hardware bridging C5, C6, and C7. IMPRESSION: Intraoperative imaging, as described
[2019-09-22] MEDS ORDERED: Morphine Sulfate 4mg/ml Inj (IV USE ONLY) IM PRN (12:00)
[2019-09-22] MEDS ORDERED: Tamsulosin 0.4mg cap ORAL SCH (12:00)
[2019-09-22] MEDS ORDERED: D5 1/2NS 1,000 ML IV SCH (12:01)
[2019-09-22] MEDS ORDERED: ceFAZolin sod 1 GM in D5W 55 ML IV SCH (15:30)
--- NOTE | 2019-09-23 05:15 | Operative Note - Dictated ---
DATE OF OPERATION: 09/22/2019 SURGEON: Masoud Leggett M.D. BUS STARTER: JUAN Husain. ANESTHESIOLOGIST: Volodymyr Sinclair M.D. ANESTHESIA: General with intubation. ADMITTING/PREOPERATIVE DIAGNOSES: Herniated nucleus pulposus, posttraumatic radiculopathy with increasing neurologic deficit, upper extremity with pain. POSTOPERATIVE DIAGNOSES: Herniated nucleus pulposus, posttraumatic radiculopathy with increasing neurologic deficit, upper extremity with pain. OPERATIVE PROCEDURE: 1. ACDF, C5-C6, C6-C7. 2. Interbody placement titanium device internal fixation. 3. Placement of osteopromotive material with local autograft, C5-C6, C6-C7. 4. Anterior internal plate fixation, bilateral C5, right unilateral C6, bilateral C7, in compressive fashion. 5. SSEP monitoring. 6. High-powered magnification dissection. 7. Intraoperative fluoroscopy interpreted by surgeon. ESTIMATED BLOOD LOSS: Minimal. COMPLICATIONS: None. POSTOPERATIVE CONDITION: Good/stable. SPECIMEN: Disc fragments to pathology. DESCRIPTION OF PROCEDURE: The patient was brought to the operating room and in the supine position, general anesthesia with intubation was induced. IV antibiotics and IV Decadron were administered 30 minutes prior to incision time. After appropriate positioning, the level of the skin incision determined with cross-table fluoroscopic imaging with right-sided markers applied to the skin but not penetrating. Appropriate interval for surgical incision placement left transverse determined and marked. Markers on the left side of the neck were removed. Anterior cervical spine was sterilely prepped and draped free in usual sterile fashion. was sharply placed through dermis and epidermis. Electrocautery dissection was carried through the subcutaneous tissue to the level of the platysmas muscle. It was identified, isolated, and transected in line with the incision. Blunt dissection was sequentially carried through deep cervical and pretracheal fascia to the midline between the right and left longus colli muscles. Disc space identification was undertaken with placement of a needle into the disc space, bent (needle) to 90 degrees angle so as to avoid penetration greater than 3 mm into the disc space. Position determined under high-power magnification. A cross-table image was obtained under sterile condition demonstrating C6-C7. Level was marked and needle removed. Subperiosteal dissection of longus colli muscles bilaterally not exceeding 3 mm from the medial to lateral extent. C6-C7: Annulotomy was performed prior to discectomy to the posterior longitudinal ligament. Endplates were denuded of cartilaginous caps. Posterior longitudinal ligament resected right foraminotomy. No dural tears or leaks noted anytime during the procedure. SSEP monitoring stable. Appropriate graft determination size was undertaken with trials followed with placement of titanium lordotic graft containing osteopromotive material with autograft. Tamped into position. Cross-table image demonstrated excellent alignment and position. Retractor placement C5-C6 interval. Annulotomy performed followed with discectomy, endplate preparation with Midas Brooks analia dissection under high-power magnification. Resection of the posterior longitudinal ligament with large disc fragment identified and noted. Midline . Decompression was undertaken under high-power magnification. No dural tears or leaks noted anytime during the procedure. SSEP monitoring stable. Wound irrigated with antibiotic-containing saline. Appropriate graft was determined for size. Graft appropriately packed with osteopromotive material and autograft. Tamped into position, C5-C6. Cross-table imaging demonstrated excellent alignment and positioning. A 10 pounds of traction on the neck was removed. Anterior internal plate fixation in compressive fashion was undertaken bilateral with 14 mm screws at C5, C7 with C6. Screws locked into position. Fit excellent. Imaging appropriately obtained. Wound irrigated with antibiotic-containing saline. FloSeal applied. Reapproximation of platysmas muscle followed by reapproximation of dermis and epidermis, transverse surgical strips applied followed with application of sterile bandage. The patient was awakened, extubated in the operating room, and transported to postop recovery in good and stable condition. Masoud Leggett M.D. DR: MARY JOB#: [id number] CC:
[2019-09-23 09:51] VITALS: BP 153/98
--- NOTE | 2019-09-23 09:51 | 48 Hour Post Anesthesia Eval ---
Post Anesthesia Evaluation Procedure: ACDF C5-6, C6-7 Date of Evaluation: Sep 22, 2019 Time of Evaluation: 16:30 Blood Pressure Systolic: 153 0: 98 Pulse Rate: 67 Respiratory Rate: 16 Temperature (Fahrenheit): 98.6 O2 Sat by Pulse Oximetry: 97 Airway: patent Nausea: No Vomiting: No Pain Intensity: 2 Hydration Status: adequate Cardiopulmonary Status: Stable Mental Status/LOC: patient returned to baseline Follow-up Care/Observations: 0 Post-Anesthesia Complications: 0 Follow-up care needed: ready to discharge Volodymyr Sinclair MD Sep 23, 2019 09:51
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
== END 2019-09-22 16:43 | disposition home or self-care (01) ==
LOC: SUR 05:13 → 3E 11:58 → EDSTATUS 09-23 07:00
DX: M50.122 Cervical disc disorder at C5-C6 level with radiculopathy (principal); M50.123 Cervical disc disorder at C6-C7 level with radiculopathy; G89.18 Other acute postprocedural pain; K50.90 Crohn's disease, unspecified, without complications; M54.5 Low back pain; Z72.0 Tobacco use; Z88.2 Allergy status to sulfonamides; Z88.8 Allergy status to other drugs, medicaments and biological substances; Z95.0 Presence of cardiac pacemaker; Z98.1 Arthrodesis status
CPT/HCPCS: 20931; 20936; 22551; 22552; 72040; 76000; 96360; 96361; 96372; C1713; G0378; J0131; J0690; J1100; J2001; J2250; J2270; J2405; J2704; J2710; J3010; J7120; 94003; 94150

== ENCOUNTER 2020-02-15 23:03 | Emergency (ER) | payer MEDICARE, OTHER ==
[~2020-02-15] VITALS: Ht 177.8 cm; Wt 68.0 kg
[2020-02-15 23:18] VITALS: BP 143/83
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
[2020-02-15] MEDS ORDERED: Morphine Sulfate 4mg/ml Inj (IV USE ONLY) IVP ONE (23:30)
[2020-02-15] MEDS ORDERED: Gadavist 7.5mMol/7.5ml vial IV PRN (23:30)
--- NOTE | 2020-02-15 23:30 | NUR ---
ED Nurse Note: all medications administered, pt tolerated well no ss of distress noted. will continue to monitor.
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
[2020-02-15 23:51] LABS: BASOPHILS % (AUTO) 1.6 % (0.0-2.0); EOSINOPHILS % (AUTO) 0.7 % (0.0-3.0); HEMATOCRIT 45.9 % (42.0-52.0); MEAN CORPUSCULAR VOLUME 89 FL (80-99); NEUTROPHILS % (AUTO) 78.9 % (45.0-75.0); PLATELET COUNT 296 K/UL (150-450); RED BLOOD COUNT 5.15 M/UL (4.70-6.10); RED CELL DISTRIBUTION WIDTH 12.5 % (11.6-14.8); WHITE BLOOD COUNT 8.1 K/UL (4.8-10.8)
[2020-02-16 00:02] LABS: ANION GAP 13 mmol/L (5-15); BLOOD UREA NITROGEN 12 mg/dL (7-18); CALCIUM 8.7 MG/DL (8.5-10.1); CARBON DIOXIDE 25 MMOL/L (21-32); CHLORIDE 101 MMOL/L (98-107); CREATININE 1.3 MG/DL (0.55-1.30); POTASSIUM 3.2 MMOL/L (3.5-5.1); SODIUM 139 MMOL/L (136-145)
[2020-02-16 00:05] LABS: APPEARANCE,URINE CLEAR; COLOR,URINE PALE YELLOW; PROTEIN,URINE NEGATIVE (NEGATIVE)
[2020-02-16 00:06] LABS: BILIRUBIN, URINE NEGATIVE (NEGATIVE); KETONES,URINE NEGATIVE (NEGATIVE); LEUKOCYTE ESTERASE ,URINE NEGATIVE (NEGATIVE); NITRITE,URINE NEGATIVE (NEGATIVE); UROBILINOGEN,URINE NORMAL MG/DL (0.0-1.0)
[2020-02-16 00:09] LABS: ALANINE AMINOTRANSFERASE 56 U/L (12-78); ALBUMIN 3.8 G/DL (3.4-5.0); ALBUMIN/GLOBULIN RATIO 0.9 (1.0-2.7); ALKALINE PHOSPHATASE 100 U/L (46-116); ASPARTATE AMINO TRANSFERASE 43 U/L (15-37); BILIRUBIN,TOTAL 0.6 MG/DL (0.2-1.0)
[2020-02-16 00:10] LABS: GLUCOSE, URINE (UA) NEGATIVE (NEGATIVE)
--- NOTE | 2020-02-16 01:00 | NUR ---
ED Nurse Note: all medications administered. pt tolerated well no ss of distress noted. will continue to monitor.
[2020-02-16 01:15] VITALS: BP 137/79
[2020-02-16] MEDS ORDERED: Morphine Sulfate 4mg/ml Inj (IV USE ONLY) IVP ONE (03:00)
--- NOTE | 2020-02-16 03:00 | NUR ---
ED Nurse Note: pt requested to take a break from K+ administration d/t pain. ERMD aware. 1/2 bags of K+ finished. Will resume 2/2 bag.
[2020-02-16 03:45] VITALS: BP 129/76
[2020-02-16 05:05] VITALS: BP 124/72
--- NOTE | 2020-02-16 05:09 | NUR ---
ED Nurse Note: pt sleeping in bed, VSS no ss of distress noted. will continue to monitor.
--- NOTE | 2020-02-16 05:14 | NUR ---
ED Nurse Note: monitor tech at bedside
--- NOTE | 2020-02-16 05:14 | NUR ---
ED Nurse Note: [employer] Rep at bedside. Awaiting cytogenetics technologist.
--- NOTE | 2020-02-16 05:18 | NUR ---
ED Nurse Note: pt taken to MRI in stable condition, VSS no ss of distress noted. will continue to monitor.
--- NOTE | 2020-02-16 07:19 | NUR ---
HAND-OFF: Report given to lucia Hua .
--- NOTE | 2020-02-16 08:02 | NUR ---
ED Nurse Note: pt returned from mri, A/O x4. pt to have pacemaker tech to return and reset pacer prior to d/c. no new c/o per pt.
[2020-02-16 08:05] VITALS: BP 123/94
--- NOTE | 2020-02-16 08:55 | NUR ---
AMA: SEE AMA FORM. pt aware that he is awaiting mri results and needing to have pacer restarted by [employer]. pt states he wants to leave, pt pulling out his iv site and leaving with his belongings.
--- NOTE | 2020-02-16 09:13 | NUR ---
ED Nurse Note: pt returning on his own to ed, awaiting [employer] tech
[2020-02-16 09:15] VITALS: BP 114/65
--- NOTE | 2020-02-16 09:24 | Diagnostic Imaging Report ---
EXAM: MR Cervical Spine With Intravenous Contrast CLINICAL HISTORY: TRAUMA TECHNIQUE: Magnetic resonance images of the cervical spine with intravenous contrast in multiple planes. COMPARISON: Cervical spine x-rays dated 09/22/19 FINDINGS: Limitations: Image artifact from anterior cervical spine fusion hardware spanning C5-C7 degrades evaluation of these vertebral segments. Vertebrae: No acute cervical spine fracture or subluxation identified. Marrow: Cervical vertebral body heights are preserved. The marrow signal from C5-C7 cannot be evaluated due to image artifact due to the hardware. Marrow signal in the remaining visualized vertebral bodies appears within normal limits. Atlantodens interval remains within normal limits. Spinal cord: Cervical spinal cord appears normal throughout. No abnormal signal in the cord. No abnormal enhancement. Soft tissues: Unremarkable. DISCS/SPINAL CANAL/NEURAL FORAMINA: C2-C3: Unremarkable. No significant disc disease. No stenosis. C3-C4: Unremarkable. No significant disc disease. No stenosis. C4-C5: Unremarkable. No significant disc disease. No stenosis. C5-C6: Annular disc bulge causing moderate central canal stenosis and mild to moderate bilateral neural foraminal stenosis. C6-C7: Annular disc bulge causing moderate central canal stenosis and mild to moderate bilateral neural foraminal stenosis. C7-T1: Unremarkable. No significant disc disease. No stenosis. IMPRESSION: 1. Image artifact from anterior cervical spine fusion hardware spanning C5-C7 degrades evaluation of these vertebral segments. 2. No acute cervical spine fracture or subluxation identified. 3. Annular disc bulges at C5-6 and C6-7 causing moderate central canal stenosis and mild to moderate bilateral neural foraminal stenosis at these levels.
--- NOTE | 2020-02-16 09:26 | Diagnostic Imaging Report ---
EXAM: MR Thoracic Spine without and with Intravenous Contrast CLINICAL HISTORY: TRAUMA TECHNIQUE: Magnetic resonance images of the thoracic spine without and with intravenous contrast in multiple planes. COMPARISON: MRI of the cervical and lumbar spine obtained concurrently. FINDINGS: Vertebrae: Unremarkable. Thoracic vertebral body heights are preserved. No acute fracture. Normal alignment. Discs/spinal canal/neural foramina: No significant disc disease. No spinal canal stenosis. Spinal cord: Unremarkable. Normal signal. No abnormal enhancement. Soft tissues: Unremarkable. IMPRESSION: Unremarkable thoracic spine MRI.
--- NOTE | 2020-02-16 09:33 | Diagnostic Imaging Report ---
EXAM: MR Lumbar Spine With Intravenous Contrast CLINICAL HISTORY: TRAUMA TECHNIQUE: Magnetic resonance images of the lumbar spine with intravenous contrast in multiple planes. COMPARISON: Intraoperative fluoroscopic images from lumbar spine fixation dated 06/25/19. FINDINGS: Limitations: Image artifact from the anterior fixation hardware and disc cage at L5-S1 degrades evaluation in these vertebral segments and disc interspace. Vertebrae: No evidence of acute lumbar spine fracture or subluxation. The lumbar vertebral body heights are preserved. Normal alignment. Spinal cord: The conus terminates at L1. No abnormal enhancement. Soft tissues: Unremarkable. DISCS/SPINAL CANAL/NEURAL FORAMINA: L1-L2: Unremarkable. No significant disc disease. No stenosis. L2-L3: Unremarkable. No significant disc disease. No stenosis. L3-L4: Mild bilateral facet hypertrophy combined with mild annular disc bulge, causing moderate bilateral neural foraminal stenosis without significant central canal stenosis. L4-L5: Mild annular disc bulge combined with mild bilateral facet hypertrophy, resulting in bilateral moderate neural foraminal stenosis without significant central canal stenosis. L5-S1: Intervertebral disc age. Mild posterior marginal osteophyte combined with bilateral facet arthrosis results in moderate bilateral neural foraminal stenosis without significant central canal stenosis. IMPRESSION: 1. Image artifact from the anterior fixation hardware and disc cage at L5-S1 degrades evaluation in these vertebral segments and disc interspace. 2. No evidence of acute lumbar spine fracture or subluxation. 3. Disc disease and facet arthrosis from L3-L4 through L5-S1, causing moderate bilateral neural foraminal stenosis at these levels without significant central canal stenosis.
--- NOTE | 2020-02-16 10:13 | NUR ---
ED Nurse Note: [employer] tech here and resetting pacemaker. pt tolerates well. pt to wr waiting for mri cd results. pt with reprot given and explained to him by .
[2020-02-16 10:14] VITALS: BP 112/68
--- NOTE | 2020-02-16 10:14 | NUR ---
ED Nurse Note: Pt cleared by health care Provider for discharge. DC instructions/prescription was given and explained to pt and verbalized understanding of teachings. All medical devices such as ID band removed. Pt is AAO x4, ambulatory and left with all personal belongings. copy of mri given to pt and reports given to pt.
== END 2020-02-16 10:16 | disposition home or self-care (01) ==
LOC: EMR 23:14
DX: M50.20 Other cervical disc displacement, unspecified cervical region (principal); E87.6 Hypokalemia; I10 Essential (primary) hypertension; K50.90 Crohn's disease, unspecified, without complications; Z95.0 Presence of cardiac pacemaker; Z88.2 Allergy status to sulfonamides; Z88.8 Allergy status to other drugs, medicaments and biological substances
CPT/HCPCS: 36415; 72156; 72157; 72158; 80053; 80307; 81003; 85025; 85610; 85651; 85730; 86140; 86850; 86900; 86901; 96365; 96366; 96375; 96376; 99284; A9585; J2270; J3480; J7030